=== PATIENT | male | born 1945 | race Caucasian/White ===

== ENCOUNTER → 2016-12-08 | Day surgery (SDC) | payer MEDICARE ==
[~2016-12-08] MED LIST: ACETAMINOPHEN 1000 MG/100 ML VIAL IV ONE; BUPIVACAINE LIPOSOME PF 1.3% 20 ML VIAL ONE; CELE200 PO; CIAL20TA PO; KETOROLAC TROMETHAMINE 30 MG/ML (IVP) VIAL ONE; LACTATED RINGER'S 1000 ML INJ 1,000 ML ONE; MIDAZOLAM HCL 2 MG/2 ML VIAL ONE; PREV30CA36 PO; PRISTIQ PO; PROPOFOL 200 MG/20 ML AMP IV ONE; SULF500 PO; ceFAZolin 2 GM PREMIX 50 ML ONE
--- NOTE | 2016-12-09 19:08 | MP ---
cc: MIGUEL TRUONG DATE OF SURGERY 12/08/16 PREOPERATIVE DIAGNOSIS Left inguinal hernia. POSTOPERATIVE DIAGNOSIS Left inguinal hernia PROCEDURE Repair of left inguinal hernia with Pro [employer]ificial Candy Maker mesh. SURGEON Lorie Truong MD ANESTHESIA General OPERATIVE FINDINGS The patient was found to have a [id number] sized left inguinal hernia with no evidence of incarceration. No other abnormalities were noted. OPERATIVE PROCEDURE The patient was brought to the operating room and, after satisfactory anesthesia was obtained, the abdomen was prepped and draped in the usual sterile fashion. 1.3% Exparel was used to infiltrate the skin for local anesthesia. A transverse left inguinal incision was made, carried down sharply through the subcutaneous tissue, with the cautery being used for hemostasis. Incision was deepened to the external oblique fascia which was noted to have its fibers splayed out and it was grossly attenuated. The external oblique fascia was opened in the direction of its fibers down to and through the external ring. The underside of the fascia was cleaned and the spermatic cord was then isolated with a [place] drain. Adhesions around the inguinal floor were cleaned up with the cautery after which the hernia sac was dissected free from the surrounding structures and reduced within the properitoneal space without problem. The inguinal floor was then closed with interrupted 0 Vicryl sutures which were brought between the internal oblique and the shelving edge of the inguinal ligament. Once the internal ring had been recreated in this fashion, a piece of Pro Artificial Candy Maker mesh was cut to the appropriate shape and secured anterior to the repair by pressing its posterior Vicryl hooks into the surrounding tissues. A suture of 0 Prolene was used to secure the mesh to the pubis and another suture of 0 Prolene was used lateral to the internal ring to further secure the mesh in that location. Hemostasis was checked for and found to be satisfactory. The external oblique fascia was closed with interrupted 3-0 Vicryl sutures. Further Exparel was infiltrated in the surrounding tissues. The subcutaneous tissue was closed with interrupted 3-0 Vicryl suture and skin closed with interrupted 4-0 PDS subcuticular stitches. Steri-Strips were applied. The patient was then awaken and taken from the operating room, in satisfactory condition having tolerated procedure without problem. Miguel Truong MD [facility] /10:27 AM /6:59 PM
== END | disposition home or self-care (01) ==
LOC: ESDC 07:32
PROVIDERS: ATTEND Surgery
DX: K40.90 Unilateral inguinal hernia, without obstruction or gangrene, not specified as recurrent (principal); Z01.810 Encounter for preprocedural cardiovascular examination
CPT/HCPCS: 00830; 49505; 93005; C1781; C9290; J0131; J0690; J1885; J2250; J3010; J7120